=== PATIENT | female | born 1980 | race African-American/Black ===

== ENCOUNTER 2016-10-14 18:15 | Inpatient (IN) | payer OTHER ==
[~2016-10-14] VITALS: Ht 175.3 cm; Wt 105.2 kg
[~2016-10-14 18:15] MED LIST: HEMOCYTE324 MG PO
[2016-10-14 18:27] VITALS: BP 125/76
[2016-10-14] MEDS ORDERED: CLARITIN,ALAVAR10 MG PO (19:03)
[2016-10-14 19:07] VITALS: BP 123/73
[2016-10-14 20:52] LABS: EOSINOPHIL (%) 1.5 % (0-5); EOSINOPHIL COUNT 0.1 K/uL (0-0.3); HEMATOCRIT 32.4 % (36.0-46.0); IMMATURE GRANULOCYTE (%) 0.3 % (0.0-0.7); LYMPHOCYTE COUNT 1.5 K/uL (1.0-2.8); MCH 22.7 PG (29.0-34.0); MCHC 31.2 G/DL (30.0-36.0); MCV 72.8 FL (83-99); MONOCYTE (%) 8.1 % (3-12); MONOCYTE COUNT 0.5 K/uL (0-0.8); NEUTROPHIL (%) 66.9 % (45-76); NEUTROPHIL COUNT 4.4 K/uL (1.8-6.4); RBC DIS.WIDTH-CV 13.7 % (11.8-14.6); RBC DIS.WIDTH-SD 36.8 % (39-53); RED BLOOD COUNT 4.45 M/uL (3.80-5.20); WHITE BLOOD COUNT 6.5 K/uL (4.1-10.2)
[2016-10-14 21:05] VITALS: BP 115/69
[2016-10-14 21:06] LABS: LARGE PLATELETS OCC; PLAT.SUFFICIENCY ADEQUATE; PLATELET COUNT UNABLE TO REPORT K/uL (156-360); USER ID NJV
[2016-10-14 21:37] VITALS: BP 111/68
[2016-10-14 22:06] VITALS: BP 117/69
[2016-10-14 23:03] VITALS: BP 112/67
[2016-10-15] VITALS (23 sets, daily range): BP systolic 96–122; BP diastolic 55–78
[2016-10-16] VITALS (18 sets, daily range): BP systolic 105–134; BP diastolic 58–81
[2016-10-17 07:23] VITALS: BP 114/77
[2016-10-17 08:18] LABS: EOSINOPHIL (%) 1.3 % (0-5); EOSINOPHIL COUNT 0.1 K/uL (0-0.3); IMMATURE GRANULOCYTE (%) 0.3 % (0.0-0.7); LYMPHOCYTE COUNT 2.4 K/uL (1.0-2.8); MONOCYTE (%) 6.5 % (3-12); MONOCYTE COUNT 0.6 K/uL (0-0.8); NEUTROPHIL (%) 66.9 % (45-76); NEUTROPHIL COUNT 6.5 K/uL (1.8-6.4)
[2016-10-17 08:56] LABS: HEMATOCRIT 29.2 % (36.0-46.0); MCH 23.6 PG (29.0-34.0); MCHC 32.2 G/DL (30.0-36.0); MCV 73.4 FL (83-99); RBC DIS.WIDTH-CV 13.8 % (11.8-14.6); RBC DIS.WIDTH-SD 36.9 % (39-53); RED BLOOD COUNT 3.98 M/uL (3.80-5.20)
[2016-10-17 09:15] LABS: WHITE BLOOD COUNT 9.7 K/uL (4.1-10.2)
[2016-10-17 09:18] LABS: HEMATOLOGY COMMENT 1 REV; USER ID NJR
[2016-10-17 09:20] LABS: PLATELET COUNT 171 K/uL (156-360)
[2016-10-17] MEDS ORDERED: IBUPROFEN800 MG PO (10:28)
[2016-10-17] MEDS ORDERED: MOVE IT ALONG100 MG PO (10:40)
== END 2016-10-17 15:57 | disposition home or self-care (01) | DRG 775 ==
LOC: LDRP-OP → 2WEST 18:16 → LDRP-OP 23:40 → 2WEST 10-16 10:05 → LDRP-OP 11-18 20:44
PROVIDERS: Advanced Practice Midwife
PROC: 3E0K7GC Introduction of Other Therapeutic Substance into Genitourinary Tract, Via Natural or Artificial Opening (ICD-10-PCS; principal; 2016-10-14)
PROC: 10E0XZZ Delivery of Products of Conception, External Approach (ICD-10-PCS; 2016-10-16)
DX: O99.02 Anemia complicating childbirth (principal); D62 Acute posthemorrhagic anemia; O69.81X0 Labor and delivery complicated by cord around neck, without compression, not applicable or unspecified; Z3A.39 39 weeks gestation of pregnancy; Z37.0 Single live birth; O99.214 Obesity complicating childbirth; E66.9 Obesity, unspecified; Z68.31 Body mass index [BMI] 31.0-31.9, adult
CPT/HCPCS: 85025; 86850; 86900; 86901; 86920; G0378; J0595; J7120

== ENCOUNTER 2018-03-31 02:08 | Emergency (ER) | payer OTHER ==
[~2018-03-31] VITALS: Ht 172.7 cm; Wt 98.1 kg
[~2018-03-31 02:08] MED LIST changes: +CLARITIN,ALAVAR10 MG PO; +IBUPROFEN800 MG PO; +MOVE IT ALONG100 MG PO
[2018-03-31] MEDS ORDERED: KEFLEX500 MG PO (03:03)
[2018-03-31 03:55] VITALS: BP 132/78
== END 2018-03-31 03:56 | disposition home or self-care (01) ==
LOC: EME 02:08
PROC: 0H98XZZ Drainage of Buttock Skin, External Approach (ICD-10-PCS; principal; 2018-03-31)
DX: O99.712 Diseases of the skin and subcutaneous tissue complicating pregnancy, second trimester (principal); L05.01 Pilonidal cyst with abscess; Z3A.27 27 weeks gestation of pregnancy
CPT/HCPCS: 87205; 99281; 99284